=== PATIENT | male | born 1945 | race African-American/Black ===

== ENCOUNTER 2016-12-23 12:47 | Emergency (ER) | payer OTHER ==
[2016-12-23 16:27] LABS: BASOPHIL 0.2 % (0-2); EOSINOPHIL 0.8 % (0-7); HCT 39.2 % (42.0-52.0); LYMPHOCYTE 9.8 % (15-48); MCH 28.5 pg (25.0-31.0); MCHC 30.6 g/dL (32.0-36.0); MCV 93.1 fL (78.0-100.0); MONOCYTE 9.5 % (0-12); MPV 10.4 fL (6.0-9.5); NEUTROPHIL 79.7 % (41-80); PLT 292 K/uL (150-400); RBC 4.21 M/uL (4.70-6.00); RDW 15.2 % (11.5-14.0); WBC 12.7 K/uL (4.0-10.5)
[2016-12-23 16:31] LABS: BILIRUBIN NEGATIVE (NEGATIVE); BLOOD TRACE-INTACT Ery/uL (NEGATIVE); CLARITY CLEAR (CLEAR); COLOR YELLOW (YELLOW); GLUCOSE (U) NORMAL (NORMAL); KETONE (U) NEGATIVE (NEGATIVE); LEUKOCYTES 1+ Leu/uL (NEGATIVE); NITRITE NEGATIVE (NEGATIVE); PROTEIN 2+ mg/dL (NEGATIVE); SPECIFIC GRAVITY 1.015 (1.001-1.030); UROBILINOGEN 0.2 mg/dL (0.2-1.0)
[2016-12-23 16:42] LABS: URINARY WBC 20-50
[2016-12-23 16:43] LABS: BACTERIA 1+; SQUAMOUS EPITHELIAL CELLS RARE
[2016-12-23 16:50] LABS: INR 1.07 (0.9-1.2); PROTHROMBIN TIME 13.5 SECONDS (11.7-14.0); PTT 26.9 SECONDS (23.2-31.4)
[2016-12-23 16:53] LABS: CREATININE 1.4 mg/dL (0.7-1.2); POTASSIUM 4.1 mmol/L (3.5-5.1)
== END 2016-12-23 22:05 | disposition other institution (70) ==
LOC: FER 12:47
PROVIDERS: Emergency Medicine; Nurse Practitioner
DX: S22.068A Other fracture of T7-T8 thoracic vertebra, initial encounter for closed fracture (principal); I10 Essential (primary) hypertension; J44.9 Chronic obstructive pulmonary disease, unspecified; Z79.82 Long term (current) use of aspirin; Z79.51 Long term (current) use of inhaled steroids; Z79.899 Other long term (current) drug therapy; V49.40XA Driver injured in collision with unspecified motor vehicles in traffic accident, initial encounter; Y92.410 Unspecified street and highway as the place of occurrence of the external cause
CPT/HCPCS: 36415; 70450; 71010; 71260; 72072; 72100; 72125; 72128; 72170; 80048; 81001; 85025; 85610; 85730; 93005; J2270; J2405